=== PATIENT | male | born 1940 | race Caucasian/White ===

== ENCOUNTER → 2018-02-23 | Outpatient (CLI) | payer MEDICARE ==
[~2018-02-23] MED LIST: DOCU-416 PO; FLU180SY11 IM; IBUP-56 PO; IBUP600T22 PO; OXYC-865 PO; PNEI SC; PNEU0.5D3 IM; SILD100T59 PO; TAM4 PO; TAMS0.4C70 PO; [UNRECOGNIZED DRUG - CODE] SQ
[2018-02-23 13:55] LABS: PLATELET COUNT, AUTOMATED 243 K/uL (150-450)
[2018-02-23 14:20] LABS: LDL CHOLESTEROL 80 mg/dl
== END ==
LOC: LAB 13:16
PROVIDERS: ATTEND Internal Medicine
DX: Z00.00 Encounter for general adult medical examination without abnormal findings (principal); R73.9 Hyperglycemia, unspecified; K85.90 Acute pancreatitis without necrosis or infection, unspecified
CPT/HCPCS: 36415; 81001; 82040; 82247; 82310; 82374; 82435; 82465; 82565; 82947; 83036; 83718; 84075; 84132; 84155; 84295; 84450; 84460; 84478; 84520; 85025

== ENCOUNTER 2018-04-07 00:06 | Day surgery (SDC) | payer MEDICARE ==
[~2018-04-07] VITALS: Ht 175.3 cm; Wt 71.7 kg
[2018-04-07] VITALS (8 sets, daily range): BP systolic 72–132; BP diastolic 46–76
[~2018-04-07 00:06] MED LIST changes: +CLOB15CR22 TP; +FINA5TAB67 PO; +OXYB10TA21 PO
[2018-04-07] MEDS ORDERED: NORMOSOL R SOLN(*) 1000 ML BAG 1,000 ML IV PRN (06:30)
[2018-04-07] MEDS ORDERED: LIDOCAINE/SOD BICARB 8.4% SYR ID ONE (06:30)
[2018-04-07] MEDS ORDERED: LIDOCAINE MPF 1% 5 ML VIAL ONE (07:34)
[2018-04-07] MEDS ORDERED: PROPOFOL EMUL(*) 10MG/ML 20 ML 40 ML ONE (07:34)
--- NOTE | 2018-04-07 08:05 | Short(Outpt) Discharge Summary ---
Discharge Summary Reason for Hosp/Final Diag: (1) Screening for colon cancer Hospital Course & Plan: 77 yo m presented for screening colonoscopy. he tolerated the procedure well and there were no complications. path pending. Departure Discharge to: Home Discharge Instructions Home Meds Reported Medications Clobetasol Propionate/Emoll (CLOBETASOL EMOLLIENT 0.05% CRM) Unknown Strength Cream..g., TP BID 02/28/18 Finasteride (FINASTERIDE) 5 Mg Tablet, 5 MG PO QDAY 02/28/18 Oxybutynin Chloride (DITROPAN XL) 10 Mg Tab.er.24, 10 MG PO QDAY, TAB 02/28/18 Tamsulosin Hcl (TAMSULOSIN HCL) 0.4 Mg Cap.er.24h, 1 CAP PO DAILY 11/19/14 Ibuprofen (IBUPROFEN) 200 Mg Tablet, 1 TAB PO PRN PRN for PAIN 06/05/14 Sildenafil Citrate (VIAGRA) 100 Mg Tablet, 1 TAB PO QDAY PRN for ERECTILE DYS FUNCTION 06/05/14 Diet: Regular Activity: As Tolerated Special Instructions: we will call you in 7-10 days with pathology results ROMULO DILLON Apr 07, 2018 08:05
--- NOTE | 2018-04-07 08:56 | NUR ---
0746 PT ARRIVED IN IN LEFT LATERAL POSITION, SBAR FROM Jeff QUINN RN AND DR. HATHAWAY, BP LOW, RE-TAKEN AND MORE FREQUENT INTERVALS WITH MINIMAL IMPROVEMENT, ALL OTHER VSS 0757 IV FLUIDS DONE, D/C'D FROM [facility], IV LEFT IN PLACE 0806 DR. DILLON AT BEDSIDE 0810 PT TURNED TO SEMI-FOWLERS POSITION AND BP IMPROVED SIGNIFICANTLY, TOLERATING ORANGE JUICE 0831 PT STATES READY TO GO HOME, ORTHOSTATICS INITIATED, STABLE, PT DENIES ANY DIZZINESS, REASSESSED, UNREMARKABLE, HYPERACTIVE BOWEL SOUNDS NOW. ALLOWED TO DRESS 0840 IV DC'D AND INSTRUCTIONS COVERED, ALL QUESTIONS ANSWERED. PT INSTRUCTED SEVERAL TIMES TO AVOID ALCOHOL FOR THE REST OF TODAY.
== END 2018-04-07 08:45 | disposition home or self-care (01) ==
LOC: OR 00:06
PROVIDERS: ATTEND Surgery
DX: Z12.11 Encounter for screening for malignant neoplasm of colon (principal); D12.0 Benign neoplasm of cecum; D12.8 Benign neoplasm of rectum; K57.30 Diverticulosis of large intestine without perforation or abscess without bleeding; N40.0 Benign prostatic hyperplasia without lower urinary tract symptoms; L30.9 Dermatitis, unspecified; F17.210 Nicotine dependence, cigarettes, uncomplicated
CPT/HCPCS: 00811; 45380; 88305; J2001; J2704

== ENCOUNTER → 2018-08-07 | Outpatient (CLI) | payer MEDICARE | LOC: LAB 08:15 | PROVIDERS: ATTEND Urology | DX: R97.20 Elevated prostate specific antigen [PSA] (principal) | CPT/HCPCS: 36415; 84153 ==